=== PATIENT | female | born 1960 | race Caucasian/White ===

== ENCOUNTER 2016-11-25 10:58 | Emergency (ER) | payer BC ==
[~2016-11-25] VITALS: Ht 170.2 cm; Wt 106.8 kg
[~2016-11-25 10:58] MED LIST: ACIPHEX20 MG PO; COLACE 100100 MG/CAP PO; ENJUVIA0.9 MG PO; LEVOTHYROXINE0.2 MG PO; LORTAB 7.5/5001 TAB PO; SYNTHROID0.2 MG/TAB PO; ZOLOFT 100MG100 MG PO
[2016-11-25 11:06] VITALS: BP 121/74; TEMP 98
[2016-11-25 13:23] VITALS: PULSE 71
== END 2016-11-25 13:23 | disposition home or self-care (01) ==
LOC: COL.ER 10:58
DX: S62.632B Displaced fracture of distal phalanx of right middle finger, initial encounter for open fracture (principal); W23.0XXA Caught, crushed, jammed, or pinched between moving objects, initial encounter; Z23 Encounter for immunization; E11.9 Type 2 diabetes mellitus without complications; Z79.84 Long term (current) use of oral hypoglycemic drugs; I10 Essential (primary) hypertension

== ENCOUNTER → 2017-07-16 | Outpatient (CLI) | payer BC | LOC: MC.RAD 11:15 | DX: Z12.31 Encounter for screening mammogram for malignant neoplasm of breast (principal) ==

== ENCOUNTER 2019-04-16 18:19 | Emergency (ER) | payer BC ==
[~2019-04-16] VITALS: Ht 170.2 cm; Wt 119.5 kg
[~2019-04-16 18:19] MED LIST changes: -CEPHALEXIN500 M1 PO
[2019-04-16 18:40] VITALS: BP 134/65; TEMP 97
[2019-04-16 19:42] LABS: BASO % 0.4 % (0.0-2.0); EOS # 0.3 (0.0-0.7); EOS % 3.2 % (0-4.0); GRAN % 54.9 % (42.2-75.2); LYMPH # 3.1 (1.2-3.4); LYMPH % 33.5 % (20.0-51.0); MEAN CELL VOLUME 92 fl (80.0-100.0); MEAN CORPUSCULAR HEMOGLOBIN 30 pg (27.0-31.0); MEAN CORPUSCULAR HGB CONC 33 g/dl (33.0-37.0); MEAN PLATELET VOLUME 10.9 fl (7.4-10.4); MONO # 0.7 (0.1-0.6); MONO % 7.6 % (1.7-9.3); PLATELET COUNT 276 K/mm3 (130-400); RED BLOOD COUNT 4.68 M/mm3 (4.10-5.30); REDCELL DISTRIBUTION WIDTH-CV 14.4 % (11.5-14.5)
[2019-04-16 19:54] LABS: ALANINE AMINOTRANSFERASE 11 U/L (9-52); ALBUMIN 4.5 gm/dL (3.5-5.0); ALKALINE PHOSPHATASE 101 U/L (50-136); ANION GAP 12 mmol/L (7-16); AST,SGOT 28 U/L (15-37); BILIRUBIN,TOTAL 0.4 mg/dL (0.0-1.0); BLOOD UREA NITROGEN 16 mg/dL (7-17); CALCIUM 9.7 mg/dL (8.4-10.2); CARBON DIOXIDE 27 mmol/L (22-30); CHLORIDE 104 mmol/L (98-107); CREATININE, serum 0.89 (0.52-1.25); GLUCOSE 98 mg/dL (74-106); POTASSIUM 3.7 mmol/L (3.4-5.0); SODIUM 143 mmol/L (137-145); TOTAL PROTEIN 8.1 gm/dL (6.4-8.2)
[2019-04-16 20:06] LABS: TROPONIN-I < 0.012 ng/mL (0.000-0.035)
[2019-04-16] MEDS ORDERED: CEPHALEXIN500 M1 PO (21:20)
[2019-04-16 21:27] VITALS: PULSE 86
== END 2019-04-16 21:27 | disposition home or self-care (01) ==
LOC: COL.ER 18:19
PROVIDERS: Nurse Practitioner
DX: L03.116 Cellulitis of left lower limb (principal); I10 Essential (primary) hypertension; E03.9 Hypothyroidism, unspecified; F17.210 Nicotine dependence, cigarettes, uncomplicated

== ENCOUNTER → 2019-04-16 | Outpatient (CLI) | payer BC ==
[~2019-04-16] MED LIST changes: +CEPHALEXIN500 M1 PO
== END ==
LOC: COL.LAB 16:20
DX: M79.662 Pain in left lower leg (principal)

== ENCOUNTER → 2020-07-22 | Outpatient (CLI) | payer BC ==
[~2020-07-22] MED LIST changes: +CEPHALEXIN500 M1 PO
== END ==
LOC: MC.RAD 12:55
DX: Z12.31 Encounter for screening mammogram for malignant neoplasm of breast (principal)